=== PATIENT | female | born 1990 | race Caucasian/White ===

== ENCOUNTER 2022-09-01 13:12 | Emergency (ER) | payer OTHER, SELFPAY ==
--- NOTE | ~2022-09-01 | XR_ITS ---
EXAMINATION: XR chest 2V DATE: 09/01/2022 16:40 INDICATION: Cough and shortness of breath TECHNIQUE: Frontal and lateral views of the chest are obtained COMPARISON: 04/27/2019 FINDINGS: The lungs are free of acute opacities. No pleural effusion or pneumothorax. The cardiomedia stinal silhouette is normal. The visualized bones and soft tissues are unremarkable. IMPRESSION: 1. No acute cardiopulmonary abnormality. Reviewed, dictated and finalized at location F.
[2022-09-01 13:30] VITALS: BP 126/79; PULSE 101; RESP 16; TEMP 36.4; O2SAT 97
--- NOTE | 2022-09-01 16:13 | ED.GENADULT ---
HPI - General Adult General Chief complaint: Unspecified Stated complaint: flu-like sx, recent tick bite Time Seen by Provider: 09/01/22 15:02 History of Present Illness HPI narrative: Patient is a 31-year-old female presenting with viral symptoms. Patient states that for the last several days she has had diffuse body aches with subjective fevers. States that she has had mild nasal congestion and mild cough. Reports mild headache. States that she feels similarly to the last time she had COVID. States that last week she was outside all weekend and was bitten by a tick. She denies any rashes. Denies numbness or weakness, chest pain, shortness of breath, abdominal pain, nausea or vomiting, diarrhea, leg swelling, dysuria. Related Data Home Medications Medication Instructions Recorded Confirmed quetiapine 50 mg tablet (Seroquel) 50 mg PO HS 04/27/19 Allergies Allergy/AdvReac Type Severity Reaction Status Date / Time No Known Allergies Allergy Verified 09/01/22 13:33 Review of Systems Review of Systems: All systems reviewed & are unremarkable except as noted in HPI and below PMFSH Social History Social History Smoking status: Unknown if ever smoked Exam Narrative: GENERAL: Well-appearing, well-nourished, and in no acute distress. HEAD: Normocephalic, atraumatic. EYES: PERRLA and EOMI. ENT: Nares clear, no rhinorrhea or epistaxis. Mucous membranes moist. NECK: Supple. CHEST: Clear to auscultation. No respiratory distress. HEART: Regular rate and rhythm. No murmur heard. Normal peripheral pulses. ABDOMEN: Soft, nontender, nondistended EXTREMITIES: Normal range of motion. No edema. SKIN: Warm, dry, no rash. NEURO: No focal deficits. Alert and oriented x3. PSYCH: Normal mood and affect. Course Vital Signs Vital signs: Vital Signs Temperature 97.6 F 09/01/22 13:30 Pulse Rate 101 H 09/01/22 13:30 Respiratory Rate 16 09/01/22 13:30 Blood Pressure 126/79 09/01/22 13:30 Pulse Oximetry 97 09/01/22 13:30 Temperature 97.6 F 09/01/22 13:30 Pulse Rate 89 09/01/22 19:20 Respiratory Rate 16 09/01/22 19:20 Blood Pressure 121/71 09/01/22 19:20 Pulse Oximetry 99 09/01/22 19:20 Medical Decision Making MDM Narrative Medical decision making narrative: Patient is a 31-year-old female presenting with viral symptoms in the setting of a recent tick bite. Patient mildly tachycardic, otherwise vitals are within normal limits. Exam remarkable for the above. Plan for basic blood work, Lyme testing. Will start fluids and give Toradol. Blood work is unremarkable. She is negative for COVID, influenza. Chest x-ray is unremarkable. On reevaluation, she is resting comfortably. States that she feels improved and is ready to go home. Given the recent tick bite with nonspecific flulike symptoms, we will start her on a weeks worth of doxycycline. Patient states that she already made appointment with her PCP in a couple of weeks. Advised that she keep this appointment. Appropriate return precautions given. Patient voiced understanding and is agreeable with plan. Discharged in stable condition. Differential Diagnosis Differential Diagnosis: Viral URI, tick bite, pneumonia Vital Signs Vital Signs: Vital Signs Temperature 97.6 F 09/01/22 13:30 Pulse Rate 101 H 09/01/22 13:30 Respiratory Rate 16 09/01/22 13:30 Blood Pressure 126/79 09/01/22 13:30 Pulse Oximetry 97 09/01/22 13:30 Temperature 97.6 F 09/01/22 13:30 Pulse Rate 89 09/01/22 19:20 Respiratory Rate 16 09/01/22 19:20 Blood Pressure 121/71 09/01/22 19:20 Pulse Oximetry 99 09/01/22 19:20 Lab Data 09/01/22 16:27 09/01/22 16:54 Labs: Lab Results 09/01/22 09/01/22 09/01/22 Range/Units 16:27 16:27 16:54 WBC 5.9 (4.5-10.0) K/mm3 RBC 4.35 (4.2-5.4) M/mm3 Hgb 13.5 (12.0-15.0) g/dL
[2022-09-01] MEDS: KETOROLAC 15 MG/ML VIAL (*BKC) IV PUSH (16:39)
[2022-09-01] MEDS: SODIUM CHLORIDE 0.9% IV 1,000 ML 999 ML IV CONT (16:39)
[2022-09-01 16:40] LABS: Basophils Absolute Auto 0.1 K/mm3 (0.0-0.1); Eosinophils Absolute Auto 0.1 K/mm3 (0-0.3); Eosinophils Percent Auto 1.2 % (0-4.4); Hematocrit 40.1 % (37.0-47.0); Hemoglobin 13.5 g/dL (12.0-15.0); Immature Granulocyte Absolute 0.01 K/mm3 (0.00-0.031); Immature Granulocyte Percent A 0.2 % (0-0.5); Lymphocytes Absolute Auto 0.59 K/mm3 (0.9-3.2); Mean Corpuscular HGB Conc 33.7 g/dl (32-36); Mean Corpuscular Volume 92.2 fl (80-100); Monocytes Absolute Auto 0.8 K/mm3 (0.1-0.6); Neutrophils Absolute Auto 4.4 K/mm3 (1.3-6.7); Neutrophils Percent Auto 74.6 % (45.5-73.1); Platelet Count Result 205 k/mm3 (150-375); Red Blood Count 4.35 M/mm3 (4.2-5.4); Red Cell Distribution Width 12.7 % (11.5-14.5); White Blood Count 5.9 K/mm3 (4.5-10.0)
[2022-09-01 16:52] VITALS: RESP 18
[2022-09-01 17:10] LABS: Alanine Aminotransferase 13 U/L (6-35); Albumin Level 4.3 g/dL (3.5-5.1); Alkaline Phosphatase 64 U/L (38-126); Anion Gap 8 mmol/L (8-16); Aspartate Amino Transferase 23 U/L (14-36); Bilirubin,Total 0.9 mg/dL (0.2-1.3); Blood Urea Nitrogen 8 mg/dL (7-17); Calcium 8.3 mg/dL (8.4-10.2); Carbon Dioxide 23 mmol/L (22-30); Chloride 106 mmol/L (98-107); Estimated CRCL calculation 130 ml/min; Estimated Glomerular Filt Rate > 60; Glucose 94 mg/dL (65-110); Sodium 137 mmol/L (137-145)
[2022-09-01 17:16] LABS: Influenza A QL RT-PCR Negative (Negative); Influenza B QL RT-PCR Negative (Negative); RSV RNA, RT-PCR Negative (Negative); SARS-CoV-2 RNA PCR Negative
[2022-09-01] MEDS: DOXYCYCLINE HYCLATE 100 MG TABLET PO (18:46)
[2022-09-01 19:20] VITALS: BP 121/71; PULSE 89; RESP 16; O2SAT 99
== END 2022-09-01 19:21 | disposition home or self-care (01) ==
PROVIDERS: Emergency Provider Emergency Medicine
DX: B34.9 Viral infection, unspecified (principal); T14.8XXA Other injury of unspecified body region, initial encounter; Z20.822 Contact with and (suspected) exposure to COVID-19; Z86.16 Personal history of COVID-19; W57.XXXA Bitten or stung by nonvenomous insect and other nonvenomous arthropods, initial encounter
CPT/HCPCS: 36415; 71046; 80053; 85025; 87637; 96361; 96374; 99284; A9270; J1885; J7030

== ENCOUNTER 2024-12-18 11:09 | Emergency (ER) | payer SELFPAY ==
--- NOTE | ~2024-12-18 | XR_ITS ---
EXAMINATION: XR chest 1V portable 12/18/2024 13:15 INDICATION: Cough. Upper respiratory infection. PROCEDURE: AP portable chest COMPARISON: 09/01/2022 FINDINGS: The lungs are clear. The cardiomediastinal silhouette is within normal limits. There are no pleural effusions. There is no pneumothorax suspected. IMPRESSION: 1: NO ACUTE CARDIOPULMONARY DISEASE. Reviewed, dictated and finalized at location B.
[2024-12-18 11:16] VITALS: BP 125/84; PULSE 105; RESP 16; TEMP 36.6; O2SAT 100
--- OUTSIDE RECORDS SUMMARY | 2024-12-18 11:17 | XMS_ITS | Clinical Summary ---
Author Organization [facility] Address [address] [place] [address] Phone Care Team Providers Care Spooler Operator Name Role Phone Diana Sood MD Primary Care Provider + Allergies No known active allergies Medications QUEtiapine (SEROQUEL) 25 MG Tablet Take 25 mg by mouth 2 times daily. Active albuterol 108 (90 Base) MCG/ACT Aerosol Solution take 2 Puffs by inhalation every 6 hours as needed for Cough. 1 Inhaler 9 Active Social History Tobacco Use Types Packs/Day Years Used Date Smoking Tobacco: Every Day Smokeless Tobacco: Never Alcohol Use Standard Drinks/Week Comments Yes 0 (1 standard drink = 0.6 oz pur e alcohol) Comments No Sex and Gender Information Value Date Recorded Sex Assigned at Not on file Legal Sex Female 11:47 PM CDT Gender Identity Not on file Sexual Orientation Not on file Last Filed Vital Signs Vital Sign Reading Time Taken Comments Blood Pressure 107/64 04/23/2019 8:16 PM AGRONOMY SUPERVISOR Pulse 68 04/23/2019 8:16 PM AGRONOMY SUPERVISOR Temperature 37.6 C (99.6 F) 04/23/2019 6:12 PM AGRONOMY SUPERVISOR Respiratory Rate 18 04/23/2019 8:16 PM AGRONOMY SUPERVISOR Oxygen Saturation 99% 04/23/2019 8:16 PM AGRONOMY SUPERVISOR Inhaled Oxygen Concentration - - Weight 51.7 kg (114 lb) 04/23/2019 6:12 PM AGRONOMY SUPERVISOR Height 167.6 cm (5' 6) 04/23/2019 6:12 PM AGRONOMY SUPERVISOR Body Mass Index 18.4 04/23/2019 6:12 PM AGRONOMY SUPERVISOR Plan of Treatment Health Maintenance Due Date Last Done Comments Hepatitis C Virus (HCV) Screening 1992 Human Papillomavirus (HPV) Immunization (1 - 3-dose series) 09/05/2007 Pap Smear 2013 Cervical Cancer Screening (CCS) 2022 HPV/Cotest 2022 SARS-COV-2 Immunization ( season) 2024 08/30/2020, 08/05/2020 Influenza Immunization (#1) 2025 Respiratory Syncytial Virus (RSV) Immunization (Adult) (1 - 1-dose 75+ series) 09/05/2067 Hepatitis B Immunization Completed 994, 1992, 1992 DTaP/Tdap/Td Immunization Discontinued 2017, 01/14/2004, 12/22/1996, Additional history exists TdaP Immunization Completed 11/14/2017 Meningococcal Immunization (ACWY) Aged Out No longer eligible based on patient's age to complete this topic Pneumococcal Immunization Combined Aged Out No longer eligible based on patient's age to complete this topic Rotavirus Immunization Aged Out No lo nger eligible based on patient's age to complete this topic Insurance MEDICAID [place] Care Teams Spooler Operator Relationship Specialty Start Date End Date Diana Sood MD [address] [place] [address] DR LAGUERRE [address] [place] [address] PCP - General Family Medicine 08/16/20
[2024-12-18] MEDS: ONDANSETRON HCL ODT 4 MG TABLET PO (12:24)
[2024-12-18 12:36] LABS: Influenza A QL RT-PCR Negative (Negative); Influenza B QL RT-PCR Negative (Negative); RSV RNA, RT-PCR Negative (Negative); SARS-CoV-2 RNA PCR Negative (Negative)
--- OUTSIDE RECORDS SUMMARY | 2024-12-18 12:45 | XMS_ITS | Clinical Summary ---
Author Organization [facility] Address [address] [place] [address] Phone Care Team Providers Care Assistant Tennis Coach Name Role Phone Diana Sood MD Primary [...] Comments Blood Pressure 107/64 04/23/2019 8:16 PM BELT LOOP MAKER Pulse 68 04/23/2019 8:16 PM BELT LOOP MAKER Temperature 37.6 C (99.6 F) 04/23/2019 6:12 PM BELT LOOP MAKER Respiratory Rate 18 04/23/2019 8:16 PM BELT LOOP MAKER Oxygen Saturation 99% 04/23/2019 8:16 PM BELT LOOP MAKER Inhaled Oxygen Concentration - - Weight 51.7 kg (114 lb) 04/23/2019 6:12 PM BELT LOOP MAKER Height 167.6 cm (5' 6) 04/23/2019 6:12 PM BELT LOOP MAKER Body Mass Index 18.4 04/23/2019 6:12 PM BELT LOOP MAKER Plan of Treatment Health Maintenance Due Date [...] this topic Insurance MEDICAID [place] Care Teams Assistant Tennis Coach Relationship Specialty Start Date End Date Diana Sood MD [address] [place] [address] DR LAGUERRE [address] [place] [address] PCP - General Family Medicine 08/16/20
--- NOTE | 2024-12-18 12:51 | ED_ITS ---
HPI - URI/Sore Throat General Chief Complaint: Upper Respiratory Infection Stated Complaint: COUGH,CONGESTION BODY ACHES Time Seen by Provider: 12/18/24 12:15 History of Present Illness HPI Narrative: Patient with a few days of viral syndrome; started with a scratchy throat and congestion then nausea/vomiting/diarrhea. Feels dehydrated. No extremity tenderness or swelling. Related Data Home Medications ?Medication ?Instructions ?Recorded ?Confirmed ?Last Taken ?Type quetiapine 50 mg tablet (Seroquel) 50 mg PO HS 04/27/19 Unknown History Allergies Allergy/AdvReac Type Severity Reaction Status Date / Time No Known Allergies Allergy Verified 12/18/24 11:17 Review of Systems 2 Review of Systems: All systems reviewed & are unremarkable except as noted in HPI and below PMFSH Social History Social History Smoking status: Unknown if ever smoked Exam 2 Narrative: EXAMINATION OF ORGAN SYSTEMS/BODY AREAS: Constitutional: Vital signs per nursing GENERAL:[No acute distress, non-toxic appearing.] HEAD: Normal with no signs of head trauma. EYES: EOMI, conjunctiva normal ENT: Congestion LUNGS: Nonlabored breathing. CTAB. HEART: [Regular rate and rhythm] ABD: [Soft], [nontender to palpation] EXT: Normal range of motion SKIN: [No rashes or lesions.] NEURO: [Alert and oriented x 3. No gross focal sensory or strength deficits.] PSYCH: Normal affect Course Vital Signs Vital signs: Vital Signs Temperature 98 F 12/18/24 11:16 Pulse Rate 105 H 12/18/24 11:16 Respiratory Rate 16 12/18/24 11:16 Blood Pressure 125/84 12/18/24 11:16 Pulse Oximetry 100 12/18/24 11:16 Temperature 98 F 12/18/24 11:16 Pulse Rate 105 H 12/18/24 11:16 Respiratory Rate 16 12/18/24 11:16 Blood Pressure 125/84 12/18/24 11:16 Pulse Oximetry 100 12/18/24 11:16 MDM - URI/Sore Throat MDM Narrative Medical decision making narrative: ED COURSE AND MEDICAL DECISION MAKING: This 34 year old patient presents with symptoms most suggestive of viral upper respiratory tract infection. Lungs are clear bilaterally without any respiratory distress or accessory muscle use. Patient is treated symptomatically with fluids, Toradol, Zofran, loperamide. On reevaluation, she is improved and discharged home in stable condition with expectant management. Return precautions were provided. Lab Data 12/18/24 12:51 12/18/24 12:51 Labs: Lab Results 12/18/24 12/18/24 12/18/24 Range/Units 11:53 12:51 14:06 WBC 4.6 (4.5-10.0) K/mm3 RBC 4.58 (4.2-5.4) M/mm3 Hgb 14.0 (12.0-15.0) g/dL Hct 41.3 (37.0-47.0) % MCV 90.2 (80-100) fl MCH 30.6 (26-34) pg MCHC 33.9 (32-36) g/dl RDW 12.3 (11.5-14.5) % Plt Count 188 (150-375) k/mm3 MPV 10.9 H (7.4-10.4) fl Immature Gran % (Auto) 0.2 (0-0.5) % Neut % (Auto) 55.3 (45.5-73.1) % Lymph % (Auto) 25.7 (18.3-44.2) % [place] % (Auto) 14.7 H (2.6-8.5) % Eos % (Auto) 3.5 (0-4.4) % Baso % (Auto) 0.6 (0.2-1.2) % Lymph # (Auto) 1.19 (0.9-3.2) K/mm3 [place] # (Auto) 0.7 H (0.1-0.6) K/mm3 Eos # (Auto) 0.2 (0-0.3) K/mm3 Baso # (Auto) 0.0 (0.0-0.1) K/mm3 Abs Immat Gran (auto) 0.01 (0.00-0.031) K/mm3 Absolute Neuts (auto) 2.6 (1.3-6.7) K/mm3 Absolute Nucleated RBC 0.000 (0.0-0.012) K/mm3 Nucleated RBC % 0.0 (0.0-0.2) % Sodium 141 (137-145) mmol/L Potassium 3.9 (3.4-5.0) mmol/L Chloride 107 (98-107) mmol/L Carbon Dioxide 21 L (22-30) mmol/L Anion Gap 13 H (4-12) mmol/L BUN 8 (7-17) mg/dL Creatinine 0.66 L (0.7-1.0) mg/dL Estim Creat Clear Calc 83 ml/min Estimated GFR > 60 (59 - ) Glucose 87 (65-110) mg/dL Calcium 9.0 (8.4-10.2) mg/dL Urine Color Dark yellow (Yellow) Urine Appearance Cloudy H (Clear) Urine pH 5.5 (5.0-9.0) Ur Specific [place] 1.031 (1.001-1.035) Urine Protein 1+ H (Negative) mg/dL Urine Glucose (UA) Negative (Negative) mg/dL Urine Ketones 3+ H (Negative) mg/dL Ur Blood (Man) Trace (Negative) Urine Nitrate Negative (Negative) Urine Bilirubin Negative (Negative) Urine Urobilinogen 1.0 (<2.0) mg/dL Add Ur Microanalysis Reviewed Leukocyte Esterase Rfl Trace H (Negative) ABILIO/UL Urine RBC 6-10 H (0-2) /hpf Urine WBC 6-10 H (0-3) /hpf Ur Squamous Epith Cells Occasional (Few) /hpf Urine Bacteria None seen /hpf Urine Casts 6-10 Influenza A (RT-PCR) Negative (Negative) Influenza B (RT-PCR) Negative (Negative) RSV (RT-PCR) Negative (Negative) SARS-CoV-2 RNA (RT-PCR) Negative (Negative) Discharge Plan Discharge Clinical Impression: Viral infection Patient Disposition: Home Condition: Stable Instructions: Viral Syndrome (ED) Additional Instructions: Please follow up with your PCP and make sure to keep hydrated; continue with the tylenol/ibuprofen at home and you can take the flonase daily for congestion and zofran as neede for nausea. You can always return if you feel worse. Patient Language: New Zealander Prescriptions: New ondansetron 4 mg tablet,disintegrating 4 mg PO Q8H PRN (Reason: nausea and vomiting) Qty: 15 0RF fluticasone propionate [Allergy Relief (fluticasone)] 50 mcg/actuation spray,suspension 1 spray intranasal DAILY Qty: 16 0RF Rx Instructions: administer into each nostril loperamide [Imodium A-D] 2 mg capsule 2 mg PO Q6H PRN (Reason: loose stool) Qty: 14 0RF No Action quetiapine [Seroquel] 50 mg Tablet 50 mg PO HS cyclobenzaprine 10 mg tablet 10 mg PO TID PRN (Reason: muscle spasm) Qty: 20 0RF doxycycline hyclate 100 mg capsule 100 mg PO BID Qty: 14 0RF Follow-up/Referrals: PHYSICIAN,COMMERCIAL FISHER [Primary Care Provider] -
[2024-12-18] MEDS: KETOROLAC 15 MG/ML VIAL (*BKC) IV PUSH (12:56)
[2024-12-18] MEDS: LACTATED RINGERS 1,000 ML 999 ML IV CONT (12:57)
[2024-12-18] MEDS: LOPERAMIDE HCL 2 MG CAPSULE 4 MG PO (12:57)
[2024-12-18 13:02] LABS: Hematocrit 41.3 % (37.0-47.0); Hemoglobin 14.0 g/dL (12.0-15.0); Immature Granulocyte Percent A 0.2 % (0-0.5); Lymphocytes Absolute Auto 1.19 K/mm3 (0.9-3.2); Mean Corpuscular HGB Conc 33.9 g/dl (32-36); Mean Corpuscular Hemoglobin 30.6 pg (26-34); Mean Corpuscular Volume 90.2 fl (80-100); Nucleated Red Blood Cells Absolute Auto 0.000 K/mm3 (0.0-0.012); Nucleated Red Blood Cells Perc 0.0 % (0.0-0.2); Platelet Count Result 188 k/mm3 (150-375); Red Blood Count 4.58 M/mm3 (4.2-5.4); White Blood Count 4.6 K/mm3 (4.5-10.0)
[2024-12-18 13:30] LABS: Anion Gap 13 mmol/L (4-12); Blood Urea Nitrogen 8 mg/dL (7-17); Calcium 9.0 mg/dL (8.4-10.2); Carbon Dioxide 21 mmol/L (22-30); Chloride 107 mmol/L (98-107); Estimated CRCL calculation 83 ml/min; Estimated Glomerular Filt Rate > 60; Glucose 87 mg/dL (65-110); Potassium 3.9 mmol/L (3.4-5.0); Sodium 141 mmol/L (137-145)
[2024-12-18 14:24] LABS: Add Urine Microscopic? YES; Appearance Urine Cloudy (Clear); Glucose Urine UA Negative (Negative); Leukocyte Esterase Ur Trace LEU/UL (Negative); Need Manual Microscopic Reviewed; Nitrate Urine Negative (Negative); Specific Grav Ur 1.031 (1.001-1.035)
== END 2024-12-18 14:40 | disposition home or self-care (01) ==
PROVIDERS: Emergency Medicine; Emergency Provider Emergency Medicine
DX: B34.9 Viral infection, unspecified (principal); Z20.822 Contact with and (suspected) exposure to COVID-19
CPT/HCPCS: 36415; 71045; 80048; 81001; 85025; 87086; 87637; 96361; 96374; 99284; A9270; J1885; J7120